=== PATIENT | male | born 1985 | race Caucasian/White ===

== ENCOUNTER 2021-07-30 21:12 | Observation (INO) ==
[2021-07-30] MEDS ORDERED: NS 0.9% 1000 ml BAG 1,000 ML IV ONE (21:26)
[2021-07-30] MEDS ORDERED: Ondansetron 4 mg VIAL 2 MG/ML 2 ml VIAL IV ONE (21:26)
[2021-07-30] MEDS ORDERED: HYDROmorphone 1 MG/1 ML SYRINGE IV ONE (21:27)
[2021-07-30] MEDS ORDERED: ZOSYN 3.375 GM x ONE DOSE over 30 miuntes IV (22:00)
[2021-07-30] MEDS ORDERED: Ondansetron 4 mg VIAL 2 MG/ML 2 ml VIAL IV PRN (22:02)
[2021-07-30] MEDS ORDERED: Zosyn per Pharmacy NOTE FOLLOW UP PRN (22:03)
[2021-07-31] MEDS: NS 0.9% 1,000 ML IV SCH ×2 (01:19→15:07)
[2021-07-31] MEDS: HYDROmorphone 1 MG/1 ML SYRINGE IV PRN ×3 (01:58→22:39)
[2021-07-31] MEDS: ZOSYN 3.375 GM Q8H per EXTENDED INFUSION IV SCH ×3 (02:09→18:30)
[2021-07-31 06:22] LABS: ABS Basophils 0.1 10^3/ul (0-0.2); ABS Eosinophils 0.1 10^3/ul (0-0.6); ABS Lymphocytes 2.1 10^3/ul (1.0-4.8); ABS Monocytes 1.2 10^3/ul (0-0.8); ABS Neutrophils 9.5 10^3/ul (1.5-7.7); Eosinophil % 0.5 %; Hematocrit 39 % (42-52); Hemoglobin 13.6 g/dL (14.0-18.0); Lymphocyte % 16.4 %; Mean Corpuscular HGB Conc 35 g/dL (31-36); Mean Corpuscular Hemoglobin 31 pg (27-31); Mean Corpuscular Volume 88 fL (80-94); Mean Platelet Volume 6.9 fL (7.4-10.4); Platelet Count 287 10^3/uL (150-450); Red Blood Count 4.46 10^6 /uL (4.18-5.48); Red Cell Distribution Width 13 % (10-15)
[2021-07-31 06:47] LABS: ABS Nucleated RBC 0.2 10^3/ul; Nucleated Red Blood Cells % 1.8
[2021-07-31 06:57] LABS: Albumin 3.7 g/dL (3.2-5.2); Albumin/Globulin Ratio 1.7 (1-3); Calcium 8.5 mg/dL (8.6-10.3); Globulin 2.2 g/dL (2-4); Potassium 4.2 mmol/L (3.5-5.0); Total Bilirubin 2.4 mg/dL (0.2-1.0); Total Protein 5.9 g/dL (6.4-8.9); eGFR CKD-EPI 121.9 (>60)
[2021-07-31 09:31] LABS: Direct Bilirubin 1.3 mg/dL (0.03-0.18)
[2021-07-31] MEDS ORDERED: Lidocaine 2% PF 5 ML VIAL ONE (11:08)
[2021-07-31] MEDS ORDERED: fentaNYL 100 mcg/2 ml 50 MCG/ML VIAL ONE ×2 (11:08→12:55)
[2021-07-31] MEDS ORDERED: Propofol 10 MG/ML 20 ML BTL ONE (11:08)
[2021-07-31] MEDS ORDERED: Bupivacaine 0.25% w/EPI 10 ML SDV ONE (11:08)
[2021-07-31] MEDS ORDERED: Dexamethasone IV 4 MG/ML VIAL 1 ml VIAL ONE (11:09)
[2021-07-31] MEDS ORDERED: Rocuronium 50 mg VIAL 10 mg/ml 5 ml VIAL (50 mg) ONE ×2 (11:09→12:45)
[2021-07-31] MEDS ORDERED: Ondansetron 4 mg VIAL 2 MG/ML 2 ml VIAL ONE (11:09)
[2021-07-31] MEDS ORDERED: Midazolam 2 mg/2 ml VIAL 1 mg/ml 2 ml VIAL (2 mg) ONE (11:09)
[2021-07-31] MEDS ORDERED: Acetaminophen IV 1 GM/100ML 100 ML IV ONE (12:39)
[2021-07-31] MEDS ORDERED: Prochlorperazine 5 mg/ml 2 ml VIAL (10 mg) IV PRN (13:00)
[2021-07-31] MEDS ORDERED: HYDROmorphone 1 MG/1 ML SYRINGE IV PRN (13:00)
[2021-07-31] MEDS ORDERED: Ondansetron 4 mg VIAL 2 MG/ML 2 ml VIAL IV PRN (13:00)
[2021-07-31] MEDS ORDERED: Scopolamine 1 mg/72hr PATCH TRANSDERM PRN (13:00)
[2021-07-31] MEDS ORDERED: Naloxone 0.4 mg VIAL 0.4 mg/ml 1 ml VIAL IV PRN (13:00)
[2021-07-31] MEDS: oxyCODONE/Acetamin 5/325 mg TAB PO PRN (18:30)
[2021-08-01] MEDS: ZOSYN 3.375 GM Q8H per EXTENDED INFUSION IV SCH ×2 (02:29→09:50)
[2021-08-01] MEDS: HYDROmorphone 1 MG/1 ML SYRINGE IV PRN (02:37)
[2021-08-01] MEDS: NS 0.9% 1,000 ML IV SCH (04:23)
[2021-08-01 05:47] LABS: ABS Eosinophils 0.1 10^3/ul (0-0.6); ABS Monocytes 1.2 10^3/ul (0-0.8); ABS Neutrophils 7.6 10^3/ul (1.5-7.7); Eosinophil % 0.7 %; Hematocrit 38 % (42-52); Hemoglobin 12.9 g/dL (14.0-18.0); Lymphocyte % 18.1 %; Mean Corpuscular HGB Conc 34 g/dL (31-36); Mean Corpuscular Hemoglobin 31 pg (27-31); Mean Corpuscular Volume 90 fL (80-94); Platelet Count 279 10^3/uL (150-450); Red Cell Distribution Width 13 % (10-15); White Blood Count 10.9 10^3/uL (3.5-10.8)
[2021-08-01 06:24] LABS: Albumin 3.4 g/dL (3.2-5.2); Albumin/Globulin Ratio 1.5 (1-3); Calcium 8.3 mg/dL (8.6-10.3); Globulin 2.3 g/dL (2-4); Potassium 4.2 mmol/L (3.5-5.0); Total Bilirubin 1.1 mg/dL (0.2-1.0); Total Protein 5.7 g/dL (6.4-8.9); eGFR CKD-EPI 120.5 (>60)
[2021-08-01] MEDS: oxyCODONE/Acetamin 5/325 mg TAB PO PRN (08:09)
[2021-08-01 11:25] VITALS: BP 125/75
== END 2021-08-01 13:05 | disposition home or self-care (01) ==
LOC: EDHOLD 21:12 → ED 21:12 → MED 07-31 00:59
PROVIDERS: ADMIT Surgery; ATTEND Surgery